=== PATIENT | female | born 1945 | race Caucasian/White ===

== ENCOUNTER 2019-05-06 00:50 | Observation (INO) | payer MEDICARE, OTHER ==
[2019-05-06] MEDS ORDERED: NITROGLYCERIN SL TABS 0.4 MG TAB SUBLINGUAL STA (01:17)
[2019-05-06] MEDS ORDERED: ASPIRIN 81 MG PO STA (01:17)
[2019-05-06] MEDS ORDERED: SODIUM CHLORIDE 0.9% 1,000 ML IV STA ×2 (01:17)
[2019-05-06 02:07] LABS: Basophils # (A) 0.1 k/uL (0-0.2); Basophils % (A) 1 %; Eosinophils # (A) 0.3 k/uL (0-0.7); Eosinophils % (A) 4 %; HCT 37.7 % (34.0-46.0); HGB 12.7 gm/dL (11.4-16.0); Lymphocytes # (A) 1.8 k/uL (1.0-4.8); Lymphocytes % (A) 25 %; MCH 32.6 pg (25.0-35.0); MCHC 33.7 g/dL (31.0-37.0); MCV 96.7 fL (80.0-100.0); Mean Platelet Volume 7.1; Monocytes # (A) 0.6 k/uL (0-1.0); Monocytes % (A) 8 %; Neutrophils # (A) 4.3 k/uL (1.3-7.7); Neutrophils % (A) 59 %; Platelet Count 191 k/uL (150-450); RDW 12.7 % (11.5-15.5); WBC 7.3 k/uL (3.8-10.6)
[2019-05-06 02:16] LABS: Albumin 3.9 g/dL (3.5-5.0); Calcium 8.9 mg/dL (8.4-10.2); Magnesium 1.8 mg/dL (1.6-2.3); Potassium 4.1 mmol/L (3.5-5.1); Total Bilirubin 0.2 mg/dL (0.2-1.3); Total Protein 6.4 g/dL (6.3-8.2)
[2019-05-06 02:18] LABS: INR 0.9 (<1.2); Partial Thromboplastin Time 22.7 sec (22.0-30.0); Prothrombin Time 10.1 sec (9.0-12.0)
--- NOTE | 2019-05-06 02:18 | XR ---
EXAM: XR Chest, 2 Views CLINICAL HISTORY: Chest Pain TECHNIQUE: Frontal and lateral views of the chest. COMPARISON: No relevant prior studies available. FINDINGS: Lungs: Subsegmental linear changes in the posterior right lower lobe are noted. No lobar consolidation. No significant radiographic abnormality identified involving the pulmonary vasculature. Pleural space: Unremarkable. No pneumothorax. Heart: Unremarkable. No cardiomegaly. Mediastinum: The mediastinal contours are unremarkable. The trachea is midline. Bones/joints: Mild degenerative changes of the thoracic spine. No acute osseous abnormality. IMPRESSION: Subsegmental linear changes in the posterior right lower lobe are presumed subsegmental atelectasis. Please correlate clinically. No lobar consolidation. No large pleural effusion or pneumothorax. No significant pulmonary vascular abnormality.
[2019-05-06] MEDS ORDERED: NITROGLYCERIN SL TABS 0.4 MG TAB SUBLINGUAL PRN (03:04)
--- NOTE | 2019-05-06 03:04 | ED ---
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 She presents emergency department today with chief complaint of chest pressure starting at 11:00 tonight when she went to lay down and for that. She also complained that when she laid down her adventism her head she was having some dizziness. She states that the dizziness seemed to resolved upon arriving however she does continue to have some chest pressure. She denies shortness of breath. She did report that she had a stress test done in September of this year, at another hospital. She states that that was reported to be clear. Patient states that she has had no fevers or chills cough. Denies nausea. She does complain of some mild neck and jaw discomfort. (Mely Cardona) - Related Data Allergies Allergy/AdvReac Type Severity Reaction Status Date / Time codeine AdvReac Nausea Verified 05/06/19 07:21 Review of Systems ROS Other: All systems not noted in ROS Statement are negative. <Mely Cardona - Last Filed: 05/06/19 02:58> ROS Other: All systems not noted in ROS Statement are negative. <Sherrie Cuevas P - Last Filed: 05/06/19 21:19> ROS Statement: Those systems with pertinent positive or pertinent negative responses have been documented in the HPI. 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 Absent: scleral icterus, conjunctival injection, periorbital swelling ENT exam: Present: normal exam, mucous membranes moist Neck exam: Present: normal inspection, other (No carotid bruits.). Absent: tenderness, meningismus, lymphadenopathy Respiratory exam: Present: normal lung sounds bilaterally. Absent: respiratory distress, wheezes, rales, rhonchi, stridor Cardiovascular Exam: Present: regular rate, normal rhythm, normal heart sounds. Absent: systolic murmur, diastolic murmur, rubs, gallop, clicks GI/Abdominal exam: Present: soft, normal bowel sounds. Absent: distended, tenderness, guarding, rebound, rigid Extremities exam: Present: normal inspection, full ROM, normal capillary refill. Absent: tenderness, pedal edema, joint swelling, calf tenderness Back exam: Present: normal inspection Neurological exam: Present: alert, oriented X3, CN II-XII intact Psychiatric exam: Present: normal affect, normal mood <Mely Cardona - Last Filed: 05/06/19 02:58> - General Exam Comments Initial Comments: His is a pleasant 74-year-old female. No distress. 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 ] Respiratory 20 16 Rate Blood Pressure 165/89 153/76 Blood Pressure [Right Arm Sitting] Blood Pressure [Right Arm Standing] Blood Pressure [Right Arm Supine] O2 Sat by Pulse 98 96 Oximetry 05/06/19 05/06/19 05/06/19 03:04 04:30 04:39 Temperature 98.7 F 96.4 F L Pulse Rate 88 Pulse Rate [ 69 69 Professor Of Psychiatry ] Respiratory 18 18 18 Rate Blood Pressure 148/72 Blood Pressure 158/72 [Right Arm Sitting] Blood Pressure 178/83 [Right Arm Standing] Blood Pressure 174/73 [Right Arm Supine] O2 Sat by Pulse 98 100 Oximetry Chest Pain [facility] <Mely Cardona - Last Filed: 05/06/19 02:58> <Sherrie Cuevas - Last Filed: 05/06/19 21:19> - MDM 74-year-old female presents with onset of chest pressure today at 11 PM also complaining of some dizziness. Patient also states that she's had some pain in her neck and jaw. At this time patient's EKG and troponin were normal. Patient does have a history of hypertension. I discussed the Patient concern for discharge with the concern for dizziness and chest pain while at rest. Patient was given nitro. She states that causes her to have a slight headache at this time K taste complaint is chest pressure. Patient will be admitted at this time with consult to cardiology. Chest x-ray showed subsegmental linear changes in the posterior right lower lobe presumed atelectasis. Correlate clinically. No lobar consolidation. No large effusion or pneumothorax. No significant pulmonary vascular abnormality. (Mely Cardona) Patient care was discussed with Dr Thurston of the [facility] who accepts the admission for high risk chest pain. (Sherrie Cuevas) Disposition Is patient prescribed a controlled substance at d/c from ED?: No Time of Disposition: 03:03 <Mely Cardona - Last Filed: 05/06/19 02:58> <Sherrie Cuevas - Last Filed: 05/06/19 21:19> Clinical Impression: Chest pain, Dizziness Disposition: ADMITTED IP TO THIS HOSP Condition: Good
[2019-05-06 03:44] VITALS: RESP 18
[2019-05-06 04:53] VITALS: BMI 29.2
[2019-05-06] MEDS ORDERED: LEVOTHYROXINE 125 MCG TAB PO SCH (07:00)
--- NOTE | 2019-05-06 07:03 | P.HPIM ---
History of Present Illness H&P Date: 05/06/19 Chief Complaint: Chest pain 74-year-old female with history of GERD and hypertension Patient presented to the hospital due to chest pressure that she felt right when she went to bed at 11 PM, described as pain 4 out of 10 in severity central chest pressure then became radiating to the neck was not associated with any trouble breathing, sweating, palpitations, nausea or vomiting. However she was feeling very dizzy she got concerned and decided to come to the hospital. In the ED she was found to have high blood pressure all her initial testing was negative. Patient otherwise denies any fevers chills coughing abdominal pain changes in her bowel or urinary habits. She denies any focal neurologic deficits She reports history of negative stress test done in September due to similar episode that she felt back in July. She is very active yesterday she has mowed a [address] with no limitations denies any exertional dyspnea. 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 Review of Systems Pertinent positives as noted in HPI. 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 History of Any Multi-Drug Resistant Organisms: None Reported Past Surgical History: Cholecystectomy, Hysterectomy, Tonsillectomy Past Psychological History: No Psychological Hx Reported Smoking Status: Never smoker Past Alcohol Use History: Occasional Past Drug Use History: None Reported - Past Family History Family Family Medical History: No Reported History Medications and Allergies Home Medications Medication Instructions Recorded Confirmed Type Esomeprazole Magnesium [NexIUM] 40 mg DAILY 05/06/19 05/06/19 History Folic Acid 2 mg PO DAILY 05/06/19 05/06/19 History Levothyroxine Sodium [Synthroid] 0.125 mcg .ROUTE DAILY 05/06/19 05/06/19 History Lisinopril [Zestril] 10 mg .ROUTE DAILY 05/06/19 05/06/19 History Metoprolol Tartrate [Lopressor] 200 mg .ROUTE DAILY 05/06/19 05/06/19 History Raloxifene [Evista] 60 mg .ROUTE HS 05/06/19 05/06/19 History Simvastatin 40 mg .ROUTE HS 05/06/19 05/06/19 History Allergies Allergy/AdvReac Type Severity Reaction Status Date / Time codeine Allergy Nausea Verified 05/06/19 00:59 Physical Exam Vitals: Vital Signs Temp Pulse Pulse Resp BP Pulse Ox 05/06/19 02:05 68 16 153/76 96 05/06/19 02:01 73 05/06/19 00:54 98.1 F 79 20 165/89 98 Intake and Output 05/05/19 05/05/19 05/06/19 14:59 22:59 06:59 Other: Weight 74.843 kg Constitutional: No acute distress, conversant, pleasant Eyes: Anicteric sclerae, moist conjunctiva, no lid-lag Pupils equal round reactive to light ENMT: NC/AT Oropharynx clear, no erythema, or exudates Neck: Supple, FROM, no masses, or JVD No carotid bruits No thyromegaly Lungs: Clear to auscultation Clear to percussion Normal respiratory effort, no accessory muscle use Cardiovascular: Heart regular in rate and rhythm, No murmurs, gallops, or rubs No peripheral edema Abdominal: Soft Nontender, no guarding, rebound or rigidity Abdomen moving with respiration Normoactive bowel sounds No hepatomegaly, No splenomegaly No palpable mass No abdominal wall hernia noted Skin: Normal temperature, tone, texture, turgor No induration No subcutaneous nodules No rash, lesions No ulcers Extremities: No digital cyanosis No clubbing Pedal pulses intact and symmetrical Radial pulses intact and symmetrical No calf tenderness Psychiatric: Alert and oriented to person, place and time Appropriate affect fair judgement Neuro Muscles Strength 5/5 in all 4 extremities Sensation to light touch grossly present throughout Cranial nerves II-XII grossly intact No focal sensory deficits Lymphatics: no palpable cervical or supraclavicular , or inguinal lymph nodes Results CBC & Chem 7: 05/06/19 01:43 05/06/19 01:43 Labs: Abnormal Lab Results - Last 24 Hours (Table) 05/06/19 Range/Units 01:43 BUN 22 H (7-17) mg/dL Glucose 104 H (74-99) mg/dL Assessment and Plan Assessment: 74-year-old female history of hyperlipidemia hypertension admitted as observation with anticipated length of stay less than 2 midnights for chest pain with atypical features to rule out acute coronary syndrome Plan: Chest pain with atypical features Pain control Nitro when necessary Troponin is negative EKG normal sinus rhythm Cardiology consult Trend cardiac 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
[2019-05-06] MEDS ORDERED: PANTOPRAZOLE 40 MG TABLET PO SCH (07:30)
[2019-05-06 08:00] VITALS: TEMP 97.9
[2019-05-06] MEDS ORDERED: DOBUTamine DRIP for NUC MED 500 MG in DEXTROSE/WATER 1 250ML.BAG IV ONE (08:21)
[2019-05-06] MEDS ORDERED: METOPROLOL TARTRATE 50 MG TAB PO SCH (09:00)
[2019-05-06] MEDS ORDERED: LISINOPRIL 10 MG TAB PO SCH (09:00)
--- NOTE | 2019-05-06 09:08 | P.CRDCN ---
History of Present Illness Consult date: 05/06/19 Requesting physician: Fernanda Thurston Reason for Consult (text): chest pain, dizziness Chief complaint: dizziness, chest pressure History of present illness: This is a pleasant 74-year-old female patient with a known history of hypertension, hyperlipidemia and Ascencio's esophagus. She does not follow regularly with a music professor but did undergo Persantine stress testing in September of this year at 's office. She presented to the emergency department with complaints of dizziness and chest pressure. She had been busy all day yesterday doing yard work and mowing her lawn. She came in the house around 9 PM and felt okay. She went to bed around 11 and when she laid down she developed significant dizziness as if the room was spinning as well as some pressure in her chest. She feels that the pressure could be related to her Ascencio's esophagus if she ate differently yesterday than she normally does and has experienced this in the past. The dizziness did not resolve so she decided to come to the emergency department. EKG on arrival showed normal sinus rhythm without ST T-wave abnormalities indicative of ischemia. Her blood pressure has been elevated but the patient says normally it runs around 120 over 70s to 80s. Admission Showed a Normal CBC with Differential, Normal Electrolytes, BUN of 22 and Creatinine 0.86. Troponin was negative 1 and NT proBNP was normal at 366. Current home medications include simvastatin 40 mg daily at bedtime, metoprolol succinate 200 mg daily, lisinopril 10 mg daily, Levophed vaccine 125 g daily, Nexium 40 mg daily, Evista 60 mg by mouth daily at bedtime and folic acid. Upon examination, patient is resting comfortably in bed. She denies current complaints of dizziness or chest pressure. She's had no complaints of shortness of breath, palpitations, edema or syncope. 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 History of Any Multi-Drug Resistant Organisms: None Reported Past Surgical History: Cholecystectomy, Hysterectomy, Tonsillectomy Additional Past Surgical History / Comment(s): oophorectomy Past Anesthesia/Blood Transfusion Reactions: No Reported Reaction Past Psychological History: No Psychological Hx Reported Smoking Status: Never smoker Past Alcohol Use History: Occasional Past Drug Use History: None Reported - Past Family History Family Family Medical History: No Reported History Medications and Allergies Home Medications Medication Instructions Recorded Confirmed Type Esomeprazole Magnesium [NexIUM] 40 mg PO DAILY 05/06/19 05/06/19 History Folic Acid 2 mg PO DAILY 05/06/19 05/06/19 History Levothyroxine Sodium [Synthroid] 125 mcg PO DAILY 05/06/19 05/06/19 History Lisinopril [Zestril] 10 mg PO DAILY 05/06/19 05/06/19 History Metoprolol Succinate [Toprol XL] 200 mg PO DAILY 05/06/19 05/06/19 History Raloxifene [Evista] 60 mg PO HS 05/06/19 05/06/19 History Simvastatin 40 mg PO HS 05/06/19 05/06/19 History Allergies Allergy/AdvReac Type Severity Reaction Status Date / Time codeine AdvReac Nausea Verified 05/06/19 07:21 Physical Exam Vitals: Vital Signs Temp Pulse Pulse Resp BP BP BP 05/06/19 07:58 97.9 F 70 18 05/06/19 07:02 05/06/19 04:39 96.4 F L 69 18 158/72 178/83 05/06/19 04:30 69 18 05/06/19 03:04 98.7 F 88 18 148/72 05/06/19 02:05 68 16 153/76 05/06/19 02:01 73 05/06/19 00:54 98.1 F 79 20 165/89 BP Pulse Ox 05/06/19 07:58 142/68 98 05/06/19 07:02 147/66 05/06/19 04:39 174/73 100 05/06/19 04:30 05/06/19 03:04 98 05/06/19 02:05 96 05/06/19 02:01 05/06/19 00:54 98 Intake and Output 05/05/19 05/06/19 05/06/19 22:59 06:59 14:59 Other: Voiding Method Toilet # Voids 1 Weight 80.1 kg PHYSICAL EXAMINATION: HEENT: Head is atraumatic, normocephalic. Pupils equal, round. Neck is supple. There is no elevated jugular venous pressure. HEART EXAMINATION: Heart sounds regular, S1 and S2 with a soft systolic murmur. CHEST EXAMINATION: Lungs are clear to auscultation. No chest wall tenderness is noted on palpation or with deep breathing. ABDOMEN: Soft, nontender. Bowel sounds are heard. No organomegaly noted. EXTREMITIES: 2+ peripheral pulses with no evidence of peripheral edema and no calf tenderness noted. NEUROLOGIC patient is awake, alert and oriented x3. Results 05/06/19 01:43 05/06/19 01:43 Cardiac Enzymes 05/06/19 05/06/19 Range/Units 01:43 01:43 AST 29 (14-36) U/L Troponin I <0.012 (0.000-0.034) ng/mL Coagulation 05/06/19 Range/Units 01:43 PT 10.1 (9.0-12.0) sec APTT 22.7 (22.0-30.0) sec CBC 05/06/19 Range/Units 01:43 WBC 7.3 (3.8-10.6) k/uL RBC 3.90 (3.80-5.40) m/uL Hgb 12.7 (11.4-16.0) gm/dL Hct 37.7 (34.0-46.0) % Plt Count 191 (150-450) k/uL Comprehensive Metabolic Panel 05/06/19 Range/Units 01:43 Sodium 138 (137-145) mmol/L Potassium 4.1 (3.5-5.1) mmol/L Chloride 107 (98-107) mmol/L Carbon Dioxide 23 (22-30) mmol/L BUN 22 H (7-17) mg/dL Creatinine 0.86 (0.52-1.04) mg/dL Glucose 104 H (74-99) mg/dL Calcium 8.9 (8.4-10.2) mg/dL AST 29 (14-36) U/L ALT 27 (9-52) U/L Alkaline Phosphatase 81 (38-126) U/L Total Protein 6.4 (6.3-8.2) g/dL Albumin 3.9 (3.5-5.0) g/dL Current Medications Generic Name Dose Route Start Last Admin Trade Name Freq PRN Reason Stop Dose Admin Aspirin 325 mg 05/07/19 09:00 Aspirin PO DAILY TATIANA Atorvastatin Calcium 20 mg 05/06/19 21:00 Lipitor PO HS TATIANA Sodium Chloride 1,000 mls @ 100 mls/hr 08/30/19 01:17 05/06/19 03:20 Saline 0.9% IV 05/06/19 11:16 100 mls/hr .Q10H STA Administration Dobutamine HCl/Dextrose 500 mg 250 mls @ 24.03 mls/hr 05/06/19 08:21 / IV Solution IV 05/06/19 18:45 .[id number] ONE Protocol 10 MCG/KG/MIN Levothyroxine Sodium 125 mcg 05/06/19 07:00 05/06/19 07:00 Synthroid PO 125 mcg DAILY@0630 TATIANA Administration Lisinopril 10 mg 05/06/19 09:00 05/06/19 07:56 Zestril PO 10 mg DAILY TATIANA Administration Metoprolol Tartrate 200 mg 05/06/19 09:00 05/06/19 07:56 Lopressor PO 200 mg DAILY TATIANA Administration Nitroglycerin 0.4 mg 05/06/19 03:04 Nitrostat SUBLINGUAL Q5M PRN Chest Pain Pantoprazole Sodium 40 mg 05/06/19 07:30 05/06/19 07:00 Protonix PO 40 mg [id number] TATIANA Administration Raloxifene HCl 60 mg 05/06/19 21:00 Evista PO HS TATIANA Intake and Output 05/05/19 05/06/19 05/06/19 22:59 06:59 14:59 Other: Voiding Method Toilet # Voids 1 Weight 80.1 kg 05/06/19 01:43 05/06/19 01:43 EKG Interpretations (text) Normal sinus rhythm Assessment and Plan Assessment: #1 symptoms of dizziness with chest pressure, patient underwent Persantine stress testing in September #2 hypertension, currently poorly controlled however patient verbalizes controlled blood pressure at home #3 hyperlipidemia #4 Ascencio's esophagus Plan: From cardiology's perspective, we'll obtain a 2-D echo with Doppler. Chest pressure could be related to Ascencio's esophagus. We will obtain recent stress test done at Dr. Caruso's office. If echocardiogram and recent stress test done elsewhere are normal patient may be discharged home and follow-up with Dr. Caruso. Further recommendations to follow depending on test results. RAIL CAR REPAIRMAN note has been reviewed, I agree with a documented findings and plan of care. Patient was seen and examined.
--- NOTE | 2019-05-06 10:40 | ECHOF ---
Referral Reason:chest pressure MEASUREMENTS -------- HEIGHT: 160.0 cm WEIGHT: 79.8 kg BP: RVIDd: 2.4 cm (< 3.3) IVSd: 1.0 cm (0.6 - 1.1) LVIDd: 3.5 cm (3.9 - 5.3) LVPWd: 1.1 cm (0.6 - 1.1) IVSs: 0.9 cm LVIDs: 2.2 cm LVPWs: 1.5 cm LAESV Index (A-L): 23.47 ml/m Ao Diam: 2.6 cm (2.0 - 3.7) AV Cusp: 1.8 cm (1.5 - 2.6) LA Diam: 3.5 cm (2.7 - 3.8) MV EXCURSION: 11.453 mm (> 18.000) MV EF SLOPE: 92 mm/s (70 - 150) EPSS: 0.7 cm MV E João: 0.97 m/s MV DecT: 217 ms MV A João: 0.73 m/s MV E/A Ratio: 1.33 RAP: 5.00 mmHg RVSP: 22.56 mmHg FINDINGS -------- Sinus rhythm. This was a technically good study. The left ventricular size is normal. Left ventricular wall thickness is normal. Overall left vent ricular systolic function is normal with, an EF between 55 - 60 %. The right ventricle is normal in size. Normal LA size by volume 22+/-6 ml/m2. The right atrial size is normal. Interatrial and interventricular septum intact. The aortic valve is trileaflet and appears structurally normal. The mitral valve is normal. There is trace mitral regurgitation. The tricuspid valve appears structurally normal. Trace tricuspid regurgitation present. Right nesha tricular systolic pressure is normal at < 35 mmHg. There is no pulmonic regurgitation present. The aortic root size is normal. Normal inferior vena cava with normal inspiratory collapse consistent with estimated right atrial pre ssure of 5 mmHg. There is no pericardial effusion. CONCLUSIONS -------- 1. Sinus rhythm. 2. This was a technically good study. 3. The left ventricular size is normal. 4. Left ventricular wall thickness is normal. 5. Overall left ventricular systolic function is normal with, an EF between 55 - 60 %. 6. The right ventricle is normal in size. 7. Normal LA size by volume 22+/-6 ml/m2. 8. The right atrial size is normal. 9. Interatrial and interventricular septum intact. 10. The aortic valve is trileaflet and appears structurally normal. 11. The mitral valve is normal. 12. There is trace mitral regurgitation. 13. The tricuspid valve appears structurally normal. 14. Trace tricuspid regurgitation present. 15. Right ventricular systolic pressure is normal at < 35 mmHg. 16. There is no pulmonic regurgitation present. 17. The aortic root size is normal. 18. Normal inferior vena cava with normal inspiratory collapse consistent with estimated right atrial pressure of 5 mmHg. 19. There is no pericardial effusion. ROLL SCALE WORKER: Pamela Umanzor RDCS
[2019-05-06 11:52] VITALS: BP 132/60; PULSE 72
--- NOTE | 2019-05-06 13:20 | P.DS ---
Providers Date of admission: 05/06/19 03:10 Expected date of discharge: 05/06/19 Attending physician: Fernanda Thurston MD Consults: 05/06/19 03:04 Consult Physician Urgent Consulting Provider: Maurilio Awad Consult Reason/Comments: Chest pain, dizziness Do you want consulting provider notified?: Yes Primary care physician: Physician Nonstaff - Discharge Diagnosis(es) (1) Atypical chest pain Current Visit: Yes Status: Acute (2) Essential hypertension Current Visit: Yes Status: Acute (3) Hyperlipidemia Current Visit: Yes Status: Acute (4) GERD (gastroesophageal reflux disease) Current Visit: Yes Status: Acute (5) Dizziness Current Visit: Yes Status: Acute Hospital Course: The patient is a 74-year-old female with a known history of GERD and Ascencio's esophagus hypertension and hyperlipidemia who presented with atypical chest pain and was placed in observation to rule out ACS, the portions troponin was negative 3 NT proBNP was normal at 366. EKG did not show any suggestion of acute ischemia. The patient had previously had a Lexiscan stress test in August 2018, records are obtained from her PCP and sales manager [place] that indicated no evidence of ischemia. Echocardiogram performed during this hospitalization showed a normal preserved LVEF of 55-60% with no significant valvular abnormalities. The patient was cleared by cardiology for discharge and recommended to follow-up with her PCP this discharge process took approximately 30 minutes Focused exam Cardiovascular: Regular rate and rhythm. No murmurs or gallops. Patient Condition at Discharge: Good Plan - Discharge Summary Discharge Rx Participant: No New Discharge Prescriptions: Continue Folic Acid 2 mg PO DAILY Simvastatin 40 mg PO HS Raloxifene [Evista] 60 mg PO HS Lisinopril [Zestril] 10 mg PO DAILY Esomeprazole Magnesium [NexIUM] 40 mg PO DAILY Metoprolol Succinate [Toprol XL] 200 mg PO DAILY Levothyroxine Sodium [Synthroid] 125 mcg PO DAILY Discharge Medication List Esomeprazole Magnesium [NexIUM] 40 mg PO DAILY 05/06/19 [History] Folic Acid 2 mg PO DAILY 05/06/19 [History] Levothyroxine Sodium [Synthroid] 125 mcg PO DAILY 05/06/19 [History] Lisinopril [Zestril] 10 mg PO DAILY 05/06/19 [History] Metoprolol Succinate [Toprol XL] 200 mg PO DAILY 05/06/19 [History] Raloxifene [Evista] 60 mg PO HS 05/06/19 [History] Simvastatin 40 mg PO HS 05/06/19 [History] Follow up Appointment(s)/Referral(s): Terry Wiley MD [REFERRING] - 1-2 Days Patient Instructions/Handouts: Chest Pain (ED)
[2019-05-06] MEDS ORDERED: ATORVASTATIN 20 MG TAB PO SCH (21:00)
[2019-05-06] MEDS ORDERED: RALOXIFENE 60 MG TAB PO SCH (21:00)
[2019-05-07] MEDS ORDERED: ASPIRIN 325 MG TAB PO SCH (09:00)
== END 2019-05-06 15:08 | disposition home or self-care (01) ==
LOC: EC 00:50 → 3SCARD 03:10
PROVIDERS: ADMIT Internal Medicine; ATTEND Internal Medicine
DX: R07.89 Other chest pain (principal); R42 Dizziness and giddiness; K22.70 Barrett's esophagus without dysplasia; R68.84 Jaw pain; M54.2 Cervicalgia; K21.9 Gastro-esophageal reflux disease without esophagitis; I10 Essential (primary) hypertension; E78.5 Hyperlipidemia, unspecified; E07.9 Disorder of thyroid, unspecified; Z79.890 Hormone replacement therapy; Z79.899 Other long term (current) drug therapy; Z88.5 Allergy status to narcotic agent; Z90.710 Acquired absence of both cervix and uterus; Z90.49 Acquired absence of other specified parts of digestive tract
CPT/HCPCS: 99285; 36415; 93005; 93306; 83880; 80053; 82150; 83690; 83735; 84484; 85025; 85610; 85730; 71046; G0378